=== PATIENT | female | born 1940 | race Two or more races ===

== ENCOUNTER 2018-01-16 09:50 | Day surgery (SDC) | payer MEDICARE, OTHER ==
[~2018-01-16] VITALS: Ht 152.4 cm; Wt 67.1 kg
[2018-01-16] VITALS (8 sets, daily range): BP systolic 114–154; BP diastolic 58–79
[~2018-01-16 09:50] MED LIST: ACTOS45 MG ORAL; AMARYL4 MG ORAL; AMBIEN10 M1 ORAL; ASPIRIN81 MG ORAL; COLCRYS0.6 M1 PO; CRESTOR10 M1 ORAL; JANUVIA100 MG ORAL; LEVEMIR FL100 UNIT/1 SUBQ; TOPROL XL25 MG ORAL
[2018-01-16] MEDS ORDERED: BYSTOLIC10 MG ORAL (10:34)
[2018-01-16] MEDS ORDERED: AVAPRO150 MG ORAL (10:34)
[2018-01-16] MEDS ORDERED: TRULICITY1.5 MG/0.5 SQ (10:34)
[2018-01-16] MEDS ORDERED: METFORMIN HCL500 M1 ORAL (10:34)
[2018-01-16] MEDS ORDERED: ZANTAC150 MG ORAL (10:34)
--- NOTE | 2018-01-16 11:05 | Pre-Procedure Note/Attestation ---
Pre-Procedure Note/Attestation Complete Prior to Procedure Planned Procedure: left Procedure Narrative: Bunionectomy, Osteotomy left foot. Tenotomy and Capsulotomy left second and third metatarsophalangeal joints Indications for Procedure Pre-Operative Diagnosis: Hallux Valgus left foot Contracture second and third digits left foot Attestation I attest that I discussed the nature of the procedure; its benefits; risks and complications; and alternatives (and the risks and benefits of such alternatives ), prior to the procedure, with the patient (or the patient's legal statement services representative). I attest that, if there was a reasonable possibility of needing a blood transfusion, the patient (or the patient's legal statement services representative) was given the [place] Department [employer] standardized written summary, pursuant to the Lloyd Matthew Blood Safety Act ([place] Health and Safety Code # 1645, as amended). I attest that I re-evaluated the patient just prior to the surgery and that there has been no change in the patient's H&P, except as documented below: Jun Sheehan DPM Jan 16, 2018 11:05
[2018-01-16] MEDS ORDERED: Lidocaine 1% Plain 30 ml INJ ONE (11:54)
[2018-01-16] MEDS ORDERED: Dexamethasone 4mg/ml vial ONE (11:54)
[2018-01-16] MEDS ORDERED: Bupivacaine 0.5% Inj 30 ml vial INJ ONE (11:54)
[2018-01-16] MEDS ORDERED: LR 1000ml ONE (12:00)
[2018-01-16] MEDS ORDERED: Sterile Water Irrig 1000ml IRRIG ONE (12:00)
[2018-01-16] MEDS ORDERED: NS Irrig 1000ml ONE (12:00)
[2018-01-16] MEDS ORDERED: Midazolam 2mg/2ml Inj ONE (12:08)
[2018-01-16] MEDS ORDERED: Lidocaine 1% MPF 10mg/ml 5ml ONE (12:08)
[2018-01-16] MEDS ORDERED: fentaNYL 100 mcg/2 mL IV ONE (12:08)
[2018-01-16] MEDS ORDERED: Propofol 200mg/20ml IV ONE (12:08)
[2018-01-16] MEDS ORDERED: LR 1000ml 1,000 ML IVLG SCH (12:36)
--- NOTE | 2018-01-16 12:36 | Anethesia Preoperative Eval ---
Anesthesia Pre-op PMH/ROS General Date of Evaluation: Jan 16, 2018 Anesthesiologist: Sebastian ASA Score: ASA 2 Mallampati Score Class I : Soft palate, uvula, fauces, pillars visible Class II: Soft palate, uvula, fauces visible Class III: Soft palate, base of uvula visible Class IV: Only hard plate visible Mallampati Classification: Class II Surgeon: Aguila Diagnosis: Left foot bunion Surgical Procedure: Left foot bunionectomy, capsulotomy 2nd and 3rd MPJ Anesthesia History: none Family History: no anesthesia problems Allergies: Coded Allergies: No Known Allergies (Unverified , 07/03/14) Medications: see eMAR Past Medical History Cardiovascular: Reports: HTN; Denies: CAD, PR, valve dz, arrhythmia, other Pulmonary: Denies: asthma, COPD, KRISTEN, other Gastrointestinal/Genitourinary: Reports: GERD; Denies: CRI, ESRD, other Neurologic/Psychiatric: Denies: dementia, CVA, depression/anxiety, TIA, other Endocrine: Reports: DM; Denies: hypothyroidism, steroids, other HEENT: Denies: cataract (L), cataract (R), glaucoma, WICHITA (L), WICHITA (R), other Hematology/Immune: Denies: anemia, DVT, bleeding disorder, other Musculoskeletal/Integumentary: Reports: OA, other - gout; Denies: RA, DJD, DDD, edema PSxH Narrative: Lap appy, DEIRDRE Anesthesia Pre-op Phys. Exam Physician Exam Last Vital Signs Date Time Temp Pulse Resp B/P (MAP) Pulse Ox O2 Delivery O2 Flow Rate FiO2 01/16/18 10:43 Room Air 01/16/18 10:18 97.3 78 18 136/79 (98) 99 97.3 Constitutional: NAD Cardiovascular: RRR Respiratory: CTA Airway Exam Mallampati Score: Class II MO: limited ROM: limited Teeth: missing Dentures: upper, lower Anesthesia Pre-op A/P Labs see chart Studies Pre-op Studies: EKG - sr with 1st degree av block Risk Assessment & Plan Assessment: ASA II Plan: GA Status Change Before Surgery: No Pre-Antibiotics Drug: Ancef 1g Given Within 1 Hr of Incision: Yes Batool Mauricio MD Jan 16, 2018 12:36
[2018-01-16] MEDS ORDERED: Ketorolac 30mg Inj IV PRN (12:45)
[2018-01-16] MEDS ORDERED: fentaNYL 100 mcg/2 mL IV PRN (12:45)
[2018-01-16] MEDS ORDERED: DiphenhydrAMINE 50mg/ml Inj IVP PRN (12:45)
[2018-01-16] MEDS ORDERED: Labetalol 5mg/ml 20ml vial IV PRN (12:45)
[2018-01-16] MEDS ORDERED: Hydromorphone 0.5mg/0.5ml inj IVP PRN (12:45)
--- NOTE | 2018-01-16 13:46 | Brief Operative Note ---
Immediate Post Operative Note Operative Note Pre-op Diagnosis: Hallux Valgus left foot Contracture second and third digits left foot Procedure: Bunionectomy osteotomy left foot Tenotomy and capsulotomy second left MPJ Post-op Diagnosis: same as pre-op Surgeon: Aguila Anesthesiologist: Ross Anesthesia: general Specimen: yes Complications: none Condition: stable Fluids: 250 Estimated Blood Loss: none Drains: none Implant(s) used?: Yes Jun Sheehan DPM Jan 16, 2018 13:46
--- NOTE | 2018-01-16 13:51 | Immediate Post-Op Evaluation ---
Immediate Post-Op Evalulation Immediate Post-Op Evalulation Procedure: Left bunionectomy, capsulotomy 2nd and 3rd [facility] Date of Evaluation: Jan 16, 2018 Time of Evaluation: 13:53 IV Fluids: 1L Blood Products: 0 Estimated Blood Loss: min Urinary Output: 0 Blood Pressure Systolic: 127 Blood Pressure Diastolic: 67 Pulse Rate: 90 Respiratory Rate: 16 O2 Sat by Pulse Oximetry: 100 Temperature (Fahrenheit): 98 Pain Score (1-10): 0 Nausea: No Vomiting: No Complications 0 Patient Status: awake, reacts, patent, none Hydration Status: adequate Drug: Ancef 1g Given Within 1 Hr of Incision: Yes Time Given: 12:15 Batool Mauricio MD Jan 16, 2018 13:51
--- NOTE | 2018-01-16 13:52 | 48 Hour Post Anesthesia Eval ---
Post Anesthesia Evaluation Procedure: Left bunionectomy, capsulotomy 2nd and 3rd MPJ Date of Evaluation: Jan 16, 2018 Airway: patent Nausea: No Vomiting: No Pain Intensity: 0 Hydration Status: adequate Cardiopulmonary Status: at bseline Mental Status/LOC: patient returned to baseline Post-Anesthesia Complications: 0 Follow-up care needed: ready to discharge Batool Mauricio MD Jan 16, 2018 13:52
--- NOTE | 2018-01-16 15:08 | Diagnostic Imaging Report ---
Indication: Status post surgery involving the hallux Comparison: None Findings: 3 views of the left foot were obtained. Images showing osteotomy at the base of the first proximal phalange with a anchoring staple. Osteotomy of the distal first metatarsal and resection of the medial aspect of the head of the first metatarsal consistent with bunionectomy. Single screw noted. Soft tissue air noted. IMPRESSION: Postsurgical changes as described above
--- NOTE | 2018-01-16 21:00 | History and Physical Report ---
DATE OF ADMISSION: 01/16/2018 HISTORY OF PRESENT ILLNESS: The patient is a 77-year-old white female that is admitted today for an outpatient bunionectomy of her left foot. The patient has been complaining of pain from her left foot for the past several years. She had tried conservative care to alleviate the pain utilizing creams, pads, shoe gear modifications, and nonsteroidal anti-inflammatories, which all failed. The patient was consulted by me about a month ago on surgical correction. PAST MEDICAL HISTORY: Remarkable for insulin-dependent diabetes mellitus, hypertension and arthritis. MEDICATIONS: Tylenol, aspirin, Trulicity, Amaryl, insulin, Avapro, metformin, Bystolic, Actos, Zantac and Ambien. ALLERGIES: No known drug allergies. PODIATRIC PHYSICAL EXAMINATION: VASCULAR: Dorsalis pedis and posterior tibial arteries are equally palpable measuring 1/4 bilaterally. Capillary filling time is less than 4 to 5 seconds to all digits bilaterally. Mild varicosities are noted bilateral lower extremity. Homans sign is negative. NEUROLOGICAL: The reflexes, Achilles and patellar measuring 1/4 bilaterally. Sensation, proprioception and vibration are all intact bilateral lower extremity. The Babinski is negative. Clonus is absent bilateral lower extremity. MUSCULOSKELETAL: Reveals stage III hallux abductovalgus with bunion deformity of the left foot. The hallux is under riding the second left digit. The second left digit is dorsally contracted and the third left digit is also under riding the second digit on the left. Range of motion of the first metatarsophalangeal joint is full and without crepitation. There are mild hammertoe deformities noted of digits 2 through 5 bilaterally. All other joints range of motions are full and without crepitation bilaterally. DERMATOLOGICAL: Reveals intact nails with no skin ulcers, scars or any other lesions. ASSESSMENT: 1. Hallux abductovalgus with bunion deformity, left foot. 2. Contracture of the second and third left metatarsophalangeal joint. PLAN: The patient is admitted today for outpatient bunionectomy of her left foot and tenotomy and capsulotomy of the second and third left metatarsophalangeal joint. Postoperative instructions were given to the patient. Risks, complications and alternatives were discussed again with the patient. Postoperative medication was dispensed to the patient. The patient elected to proceed with surgery. Jun Sheehan D.P.M. DR: KATELIN JOB#: [id number] CC:
--- NOTE | 2018-01-16 21:30 | Operative Note - Dictated ---
DATE OF OPERATION: 01/16/2018 SURGEON: Jun Sheehan D.P.M. ANESTHESIOLOGIST: Batool Hawkins M.D. ANESTHESIA: General. PREOPERATIVE DIAGNOSES: 1. Hallux abductovalgus with bunion deformity, left foot. 2. Contracture second and third left metatarsophalangeal joint. POSTOPERATIVE DIAGNOSES: 1. Hallux abductovalgus with bunion deformity, left foot. 2. Contracture second and third left metatarsophalangeal joint. PROCEDURES PERFORMED: 1. Chevron osteotomy with screw fixation, left foot. 2. Jimmie osteotomy with staple fixation, left foot. 3. Tenotomy and capsulotomy, left second metatarsophalangeal joint. DESCRIPTION OF THE OPERATION: The patient was brought to the operating room and was placed on the operating room table in the supine position. IV sedation was administered by the anesthesiologist and general anesthesia was administered by the anesthesiologist. Local anesthetic consisting of a 50:50 mix of 1% Xylocaine plain and 0.5% Marcaine plain, total of 20 mL was administered to the left foot. An ankle tourniquet was applied to the left lower extremity. The foot was prepped and draped in the usual sterile manner. An Esmarch bandage was utilized to exsanguinate the blood and the left ankle tourniquet was inflated to 250 mmHg. Attention was directed to the left hallux where an approximately 6-7 cm dorsal linear skin incision was performed, centered over the first metatarsophalangeal joint. The incision was deepened utilizing sharp and blunt dissection with care being taken to cauterize and ligate all bleeders. At the level of the joint, a linear capsulotomy was performed. The capsule was reflected medially and laterally and the head of the first metatarsal was exposed. Utilizing a sagittal saw, the medial eminence was resected. The remaining bone was rasped smooth. The wound was copiously flushed utilizing sterile saline. At this point, utilizing a 67 blade a lateral release was performed. The lateral capsule was freed. Attention was then directed to the first metatarsal head and neck where a V-type osteotomy performed utilizing the sagittal saw. The through and through osteotomy was carried with the arms protruding proximally in the apex distally. The capital fragment was then transposed laterally and fixated onto the first metatarsal utilizing 2.5 headless screw from [employer]gra, which was driven from dorsal proximal to plantar distal. The screw which was utilized was 18 mm and it was driven over the K-wire, which was utilized to stabilize the osteotomy. At this point, a K-wire was reduced and the overhang was then resected utilizing a sagittal saw. The remaining bone was rasped smooth. The wound was copiously flushed utilizing sterile saline. Attention was then directed to the proximal phalanx. The capsule was reflected dorsally and plantarly and the periosteum was reflected dorsally and plantarly utilizing a [place]. Attention was then directed to the medial aspect of the mid shaft where wedge osteotomy was performed utilizing the sagittal saw with care taken to leave the lateral cortex intact. The osteotomy was reduced and the hallux was brought into a rectus position. Two 1.5 mm drill bits, guide holes were then inserted just proximal and distal to the osteotomy and an 8 x 8 mm staple was inserted to stabilize the osteotomy. At this point, the wound was copiously flushed utilizing sterile saline. The capsule was then reapproximated utilizing 3-0 Vicryl in a simple interrupted type stitch. The subcutaneous tissue was then reapproximated utilizing 4-0 Vicryl in a buried knot type stitch. The skin was then reapproximated utilizing 4-0 nylon in a simple interrupted type stitch. Attention was then directed to the second metatarsophalangeal joint where an approximately 4 cm dorsal linear skin incision was performed. The incision was deepened utilizing sharp and blunt dissection with care being taken to cauterize and ligate all bleeders. At the level of the joint, a transverse tenotomy was performed. The capsule was released and the head of the second metatarsal was exposed. Utilizing a McGlamry screw, the head was freed from all its capsular attachments and the second digit was brought into a rectus position. The wound was copiously flushed utilizing sterile saline. At this point, the subcutaneous tissue was reapproximated utilizing 4-0 Vicryl in a buried knot type stitch. The skin was then reapproximated utilizing 4-0 nylon in a simple interrupted type stitch. The wound was dressed utilizing an Adaptic 4 x 4 gauze, and 3 inch Nora. Left ankle tourniquet was deflated and vascular supply was noted to all digits left foot. The patient tolerated the procedure well and left the operating room to recovery room with all vital signs stable. Jun Sheehan D.P.M. DR: KATELIN JOB#: [id number] CC:
== END 2018-01-16 15:25 | disposition home or self-care (01) ==
LOC: SUR 09:50
DX: M20.12 Hallux valgus (acquired), left foot (principal); M21.612 Bunion of left foot; M24.575 Contracture, left foot; M20.42 Other hammer toe(s) (acquired), left foot; M20.41 Other hammer toe(s) (acquired), right foot; E11.9 Type 2 diabetes mellitus without complications; Z79.4 Long term (current) use of insulin; I10 Essential (primary) hypertension; M19.90 Unspecified osteoarthritis, unspecified site; K21.9 Gastro-esophageal reflux disease without esophagitis; M10.9 Gout, unspecified; Z90.49 Acquired absence of other specified parts of digestive tract; Z90.710 Acquired absence of both cervix and uterus; Z79.82 Long term (current) use of aspirin
CPT/HCPCS: 28270; 28299; 73630; 82962; 97161; C1713; G8978; G8979; G8980; J0690; J1100; J1885; J2250; J2405; J2704; J3010; J3490; J7120; 94003; 94150